=== PATIENT | female | born 1945 | race Caucasian/White ===

== ENCOUNTER 2019-06-27 07:00 | Day surgery (SDC) | payer MEDICARE ==
[~2019-06-27] VITALS: Ht 167.6 cm; Wt 79.0 kg
--- NOTE | 2019-06-27 08:03 | NUR ---
CALL LIGHT IN REACH.
--- NOTE | 2019-06-27 08:55 | NUR ---
RF CYCLES COMPLETED AT 120 DEGREES CELCIUS, 12 SPEARS TOTAL TREATMENT TIME 2:40, 8 RF CYCLES. PT TOLERATED WELL.
--- NOTE | 2019-06-27 09:36 | NUR ---
DISCHARGE INSTRUCTIONS REVIEWED ALL QUESTIONS ANSWERED. 20 G IV DISCONTINUED FROM RIGHT AC WITH INTACT CANNULA. PT ESCORTED OUT VIA WHEELCHAIR ESCORT. PRIOR TO DISCHARGE LEFT LEG WAS WRAPPED TO THIGH-HIGH WITH GAUZE, COBAN AND 20-30 COMPRESSION STOCKING.
[2019-07-17] MEDS ORDERED: ATOR20 PO (13:56)
[2019-07-17] MEDS ORDERED: METO100ER PO (13:57)
[2019-07-17] MEDS ORDERED: CHLO25B PO (13:57)
[2019-07-17] MEDS ORDERED: Prinivil10 MG PO (13:57)
[2019-07-17] MEDS ORDERED: VITAMIN D-32000 UNIT PO (13:58)
[2019-07-17] MEDS ORDERED: [UNRECOGNIZED DRUG - OTHER] PO (13:58)
[2019-07-17] MEDS ORDERED: DAILY VALUE1 EACH PO (13:59)
[2019-07-17] MEDS ORDERED: TURMERIC 450-51 EACH PO (13:59)
[2019-07-17] MEDS ORDERED: Aspir 8181 MG PO (14:00)
[2019-07-18] MEDS ORDERED: LEVSOD100 PO (11:24)
== END 2019-06-27 22:37 | disposition home or self-care (01) ==
LOC: MHTC 07:00
DX: I87.2 Venous insufficiency (chronic) (peripheral) (principal); I83.92 Asymptomatic varicose veins of left lower extremity; I10 Essential (primary) hypertension; E78.5 Hyperlipidemia, unspecified; Z82.49 Family history of ischemic heart disease and other diseases of the circulatory system
CPT/HCPCS: 36475; 99152; C1888; C1894; J1644; J2250; J3010; J7040

== ENCOUNTER 2019-07-18 12:18 | Day surgery (SDC) | payer MEDICARE ==
[~2019-07-18] VITALS: Ht 165.1 cm; Wt 87.0 kg
[~2019-07-18 12:18] MED LIST: ATOR20 PO; Aspir 8181 MG PO; CHLO25B PO; DAILY VALUE1 EACH PO; LEVSOD100 PO; METO100ER PO; Prinivil10 MG PO; TURMERIC 450-51 EACH PO; VITAMIN D-32000 UNIT PO; [UNRECOGNIZED DRUG - OTHER] PO
--- NOTE | 2019-07-18 14:53 | NUR ---
DISCHARGE GONE OVER WITH PT, PT VERBALIZES UNDERSTANDING. TO PRIVATE VEHICLE PER W/C WITH ESCORT.
== END 2019-07-18 22:44 | disposition home or self-care (01) ==
LOC: MHTC 12:18
DX: I83.892 Varicose veins of left lower extremity with other complications (principal); I87.2 Venous insufficiency (chronic) (peripheral)
CPT/HCPCS: 36466; 36470; 99152; J1644; J2250; J3010; J7030; J7040

== ENCOUNTER → 2019-11-22 | Outpatient (CLI) | payer MEDICARE ==
[2019-11-22 14:23] LABS: Creatinine Urine 89.1 mg/dL (27.00-270.00); Protein, Urine Quantitative 8.7 mg/dL (0.0-11.9)
[2019-11-22 14:25] LABS: Microalbumin, Urine Quant. 6.86 mg/L (0.000-20.000)
== END ==
LOC: LAB SRC 08:11 → LAB SHORT 08:11 → LAB FUT 11-19 13:55
PROVIDERS: Internal Medicine Nephrology
DX: N18.3 Chronic kidney disease, stage 3 (moderate) (principal); D63.1 Anemia in chronic kidney disease; R73.09 Other abnormal glucose; N25.81 Secondary hyperparathyroidism of renal origin; E55.9 Vitamin D deficiency, unspecified; E78.00 Pure hypercholesterolemia, unspecified; R76.9 Abnormal immunological finding in serum, unspecified; R94.5 Abnormal results of liver function studies; R94.6 Abnormal results of thyroid function studies; D51.8 Other vitamin B12 deficiency anemias; D52.8 Other folate deficiency anemias; D50.9 Iron deficiency anemia, unspecified
CPT/HCPCS: 81050; 82043; 82570; 84156

== ENCOUNTER 2020-12-05 06:15 | Day surgery (SDC) | payer MEDICARE ==
[~2020-12-05] VITALS: Ht 165.1 cm; Wt 86.0 kg
--- NOTE | 2020-12-05 08:25 | NUR ---
PT TOLERATED TATE PROCEDURE WELL. NADN. PT VERBALIZES UNDERSTANDING WRITTEN AND VERBAL ORDERS. PT IV DC'D. CATH INTACT. PRESSURE DSG IN PLACE. VSS. NADN. PT ESCORTED OUT VIA WC.
[2020-12-31] MEDS ORDERED: THERA-D2000 UNIT PO (10:28)
[2020-12-31] MEDS ORDERED: FURO20 PO (10:29)
[2020-12-31] MEDS ORDERED: [UNRECOGNIZED DRUG - OTHER] PO (10:29)
== END 2020-12-05 11:02 | disposition home or self-care (01) ==
LOC: MHTC 06:15
DX: I05.9 Rheumatic mitral valve disease, unspecified (principal); I10 Essential (primary) hypertension
CPT/HCPCS: 93312; 93325; 99152; A9270; J2250; J3010; J7030

== ENCOUNTER 2021-01-08 07:37 | Day surgery (SDC) | payer MEDICARE ==
[~2021-01-08] VITALS: Ht 167.6 cm; Wt 89.6 kg
[~2021-01-08 07:37] MED LIST changes: +FURO20 PO; +THERA-D2000 UNIT PO; +[UNRECOGNIZED DRUG - OTHER] PO
--- NOTE | 2021-01-08 09:18 | NUR ---
01/08/21 0918 Tonya Fishman 1 MG EPI ADDED TO EACH OF THE FIRST 3 BAGS OF LR FOR IRRIGATION PER ORDER
--- NOTE | 2021-01-08 11:35 | NUR ---
01/08/21 Selina5 АЛЕКСАНДР MCWILLIAMS PATIENT UP TO THE RESTROOM VIA WHEEL CHAIR, CONTINUES TO DENY PAIN, REPORTING MINIMALLY IMPROVED NAUSEA AFTER SCOPOLAMINE PATCH ADMINISTERED
== END 2021-01-08 12:34 | disposition home or self-care (01) ==
LOC: ORSCSDS 07:37
PROVIDERS: Orthopaedic Surgery
PROC: 0LQ24ZZ Repair Left Shoulder Tendon, Percutaneous Endoscopic Approach (ICD-10-PCS; principal; 2021-01-08 09:00)
PROC: 0RNK4ZZ Release Left Shoulder Joint, Percutaneous Endoscopic Approach (ICD-10-PCS; principal; 2021-01-08 09:00)
DX: M75.122 Complete rotator cuff tear or rupture of left shoulder, not specified as traumatic (principal); M75.22 Bicipital tendinitis, left shoulder; M75.42 Impingement syndrome of left shoulder; I10 Essential (primary) hypertension; Z79.899 Other long term (current) drug therapy; E03.9 Hypothyroidism, unspecified; N18.2 Chronic kidney disease, stage 2 (mild)
CPT/HCPCS: A9270; C1713; J0171; J0330; J0690; J2250; J2370; J2405; J2765; J3010; J7120

== ENCOUNTER 2024-04-11 11:23 | Day surgery (SDC) | payer MEDICARE ==
[~2024-04-11] VITALS: Ht 165.1 cm; Wt 88.3 kg
[~2024-04-11 11:23] MED LIST changes: +CARVEDILOL12.5 MG PO; +CARVEDILOL3.125 MG PO; +HYDRA50 PO; +LEVOTHYROXINE112 M18 PO; +Lactated Ringer's 1,000 ML IV ONE; +propofoL 50 ML IV ONE
[2024-04-11] MEDS ORDERED: Lactated Ringer's 1,000 ML IV ONE (12:05)
[2024-04-11] MEDS ORDERED: propofoL 50 ML IV ONE (13:49)
[2024-04-11 14:08] VITALS: BP 141/68
== END 2024-04-11 14:11 | disposition home or self-care (01) ==
LOC: ORSCSDS 11:23
PROVIDERS: Internal Medicine Gastroenterology
PROC: 0DBP8ZX Excision of Rectum, Via Natural or Artificial Opening Endoscopic, Diagnostic (ICD-10-PCS; principal; 2024-04-11 12:45)
DX: Z12.11 Encounter for screening for malignant neoplasm of colon (principal); K62.1 Rectal polyp; K57.30 Diverticulosis of large intestine without perforation or abscess without bleeding; K64.8 Other hemorrhoids; R19.5 Other fecal abnormalities; E78.5 Hyperlipidemia, unspecified; I12.9 Hypertensive chronic kidney disease with stage 1 through stage 4 chronic kidney disease, or unspecified chronic kidney disease; N18.30 Chronic kidney disease, stage 3 unspecified; E05.00 Thyrotoxicosis with diffuse goiter without thyrotoxic crisis or storm; Z68.34 Body mass index [BMI] 34.0-34.9, adult; E03.9 Hypothyroidism, unspecified; Z79.899 Other long term (current) drug therapy
CPT/HCPCS: 88305; J2704; J7120

== ENCOUNTER 2024-12-04 07:00 | Day surgery (SDC) | payer MEDICARE ==
[~2024-12-04] VITALS: Ht 160 cm; Wt 89.2 kg
[2024-12-04] VITALS (11 sets, daily range): BP systolic 124–178; BP diastolic 56–108
[~2024-12-04 07:00] MED LIST changes: +CeFAZolin Sodium 2,000 MG in NS 100 ML IV SCH; +Chlorhexidine Mouth Care 15 ML UDC MT SCH; -Lactated Ringer's 1,000 ML IV ONE; +Lactated Ringer's 1,000 ML IV SCH; +OxyCODONE HCL 10 MG TABCR PO SCH; +Ropivacaine 0.5% HCl/Pf 123.125 MG,EPINEPHrine HCL 0.25 MG,Ketorolac Tromethamine 15 MG... INFIL SCH; +Tranexamic Acid 100 ML IV SCH; -propofoL 50 ML IV ONE
[2024-12-04] MEDS ORDERED: CeFAZolin Sodium 2,000 MG VIAL ONE (07:12)
[2024-12-04] MEDS ORDERED: propofoL 50 ML IV ONE (07:37)
[2024-12-04] MEDS ORDERED: FentaNYL Citrate 50 MCG/ML 2 ML Injection ONE (07:38)
[2024-12-04] MEDS ORDERED: Midazolam HCl 1MG / ML 2ML Vial ONE (07:38)
--- NOTE | 2024-12-04 07:48 | NUR ---
Ambulatory in Day Surgery History, Chart, Medications and Allergies reviewed before start of procedure. Pre-Op teaching done. Pt verbalizes understanding.
[2024-12-04] MEDS ORDERED: Acetaminophen 500 MG Tab ONE (07:59)
[2024-12-04] MEDS ORDERED: Acetaminophen 500 MG Tab PO SCH ×2 (08:05→16:00)
[2024-12-04] MEDS ORDERED: Dexamethasone Sod Phos 10 MG/ML 1ML VIAL ONE (09:11)
[2024-12-04] MEDS ORDERED: Lactated Ringer's 1,000 ML IV SCH (09:40)
[2024-12-04] MEDS ORDERED: HYDROmorphone HCl/Pf 1MG SYR IV PRN ×3 (09:40→10:45)
[2024-12-04] MEDS ORDERED: OxyCODONE HCL 5 MG TAB PO PRN ×2 (09:45)
[2024-12-04] MEDS ORDERED: Magnesium Hydroxide Conc 10 ML UDC PO PRN (09:45)
[2024-12-04] MEDS ORDERED: FLU VACC TS2024-25(6MOS UP)/PF 45 MCG/0.5 ML SYRINGE IM SCH (09:45)
[2024-12-04] MEDS ORDERED: Ondansetron HCl 2 MG / ML 2ML Vial IV PRN ×2 (09:45→10:50)
[2024-12-04] MEDS ORDERED: Metoclopramide HCl 5MG / ML 2ML Vial IV PRN (09:45)
[2024-12-04] MEDS ORDERED: DiphenhydrAMINE HCL 25 MG Cap PO PRN (09:50)
[2024-12-04] MEDS ORDERED: Promethazine HCl 25 MG Tab PO PRN (09:50)
[2024-12-04] MEDS ORDERED: Artificial Tear Opth Oint 3.5 GM ONE (10:03)
[2024-12-04] MEDS ORDERED: ePHEDrine Sulfate 50 MG/ML 1ML Injection ONE (10:03)
[2024-12-04] MEDS ORDERED: Bisacodyl 10 MG Supp PR PRN (10:15)
[2024-12-04] MEDS ORDERED: propofoL 20 ML IV ONE (10:35)
[2024-12-04] MEDS ORDERED: Albuterol 2.5 MG/3 ML VIAL INH PRN (10:45)
[2024-12-04] MEDS ORDERED: FentaNYL Citrate 50 MCG/ML 2 ML Injection IV PRN ×2 (10:45)
[2024-12-04] MEDS ORDERED: Labetalol HCL 5 MG/ML 4ML Injection (Single Dose) IV PRN (10:45)
[2024-12-04] MEDS ORDERED: ePHEDrine Sulfate 50 MG/ML 1ML Injection IV PRN (10:45)
--- NOTE | 2024-12-04 11:26 | NUR ---
PT ARRIVED TO UNIT AT APROX 1126. PT A/O 'X 4. POD 0 L TKA, AQUACEL DRESSING C/D/I, PAS AND POLAR PACK IN PLACE. PT HAS NUMBNESS TO BLE, IS ABLE TO WIGGLE TOES. DENIES PAIN. LUNGS DIM IN BASES UPON ARRIVAL TO UNIT, DENIES SOB/CP. WILL REPORT TO PRIMARY RN FOR ASSUMPTION OF CARE.
[2024-12-04] MEDS ORDERED: Ketorolac Tromethamine 15mg Vial IV SCH (12:00)
--- NOTE | 2024-12-04 14:24 | NUR ---
Pt. is awake in bed reading a book, when she welcomes my visit. Pt. is pleasant. Facilitated a life review and established some rapport after the Pt. 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 Consdiered matters of sebastián and belief. Pt. verbalized expectations to possibly discharge home today. Seek to normalize the Pt. experience and expectations. Prayed for the Pt. Pt. verbalized gratitude for the spiritual care visit.
--- NOTE | 2024-12-04 16:54 | NUR ---
Spiritual Care Follow up. After the pt. had finished with PT and it was determined she would be staying the night to recover. This butcher and the PT prayed with the Pt. Pt. verbalzied gratitude for the spiritual care visit.
[2024-12-04] MEDS ORDERED: CeFAZolin Sodium 2,000 MG in NS 100 ML IV SCH (17:00)
[2024-12-04] MEDS ORDERED: Carvedilol 25 MG Tab PO SCH (17:00)
--- NOTE | 2024-12-04 19:30 | NUR ---
SHIFT SUMMARY POD0 L TKA, A/OX4, VSS, TOLERATING PO, PAIN WELL MANAGED, UP TO THE CHAIR AFTER WORKING WITH THERAPY, VOIDING. AQUACELL DRESSING C/D/I. NO ACUTE EVENTS THIS SHIFT, CALL LIGHT IN [facility].
[2024-12-04] MEDS ORDERED: Docusate Sodium 100 MG Cap PO SCH (21:00)
[2024-12-04] MEDS ORDERED: Atorvastatin 10 MG Tab PO SCH (21:00)
[2024-12-04] MEDS ORDERED: Lisinopril 20 MG Tab PO SCH (21:00)
[2024-12-04] MEDS ORDERED: HydrALAZINE HCl 50 MG Tab PO SCH (21:00)
[2024-12-05 00:12] VITALS: BP 133/57
[2024-12-05 04:33] VITALS: BP 149/63
--- NOTE | 2024-12-05 05:59 | NUR ---
SHIFT SUMMARY POD 1 L TKA. NO ACUTE CHANGES OVERNIGHT. VSS. TOLERATING ORALS. VOIDING. AQUACEL & RABIA WRAP, C/D/I. PT REPORTS PAIN TOLERABLE, MEDICATED PER EMAR, POLAR PACK IN USE. ANTICIPATED TO WORK c PHYSCIAL THERAPY THEN DISCHARGE HOME LATER TODAY. PT DRESSED, RESTING IN CHAIR. CALL LIGHT IN REACH, WILL REPORT TO DAY RN.
[2024-12-05] MEDS ORDERED: Levothyroxine Sodium 0.125 MG Tab PO SCH (06:00)
[2024-12-05 06:56] LABS: BASOPHILS ABSOLUTE AUTO 0.01 K/mm3 (0.00-0.23); BASOPHILS PERCENT AUTO 0 % (0-2); EOSINOPHILS PERCENT AUTO 0 % (0-6); Hematocrit 27.7 % (33.0-51.0); Hemoglobin 9.5 g/dL (11.5-16.0); IMMATURE GRAN ABSOLUTE AUTO 0.09 K/mm3 (0.00-0.10); IMMATURE GRAN PERCENT AUTO 1 % (0-1); LYMPHOCYTES ABSOLUTE AUTO 1.31 K/mm3 (0.84-5.20); LYMPHOCYTES PERCENT AUTO 8 % (21-46); MONOCYTES PERCENT AUTO 5 % (4-13); Mean Corpuscular HGB 31.9 pg (26.0-34.0); Mean Corpuscular HGB Conc 34.3 g/dL (31.5-36.5); Mean Corpuscular Volume 93 fL (80-100); Mean Platelet Volume 9.3 fL (9.1-12.4); NEUTROPHILS ABSOLUTE AUTO 14.02 K/mm3 (1.96-9.15); NEUTROPHILS PERCENT AUTO 86 % (41-73); Platelet Count 261 K/mm3 (150-400); RDW Coefficient Variation 13.1 % (11.7-14.2); RDW Standard Deviation 44.1 fL (35.1-46.3); Red Blood Cell Count 2.98 M/mm3 (3.80-5.20); White Blood Cell Count 16.23 K/mm3 (4.00-11.30)
[2024-12-05 07:03] LABS: Bun/Creatinine Ratio 16.8 (12.0-20.0); Calcium, Blood 8.7 mg/dL (8.5-10.1); Creatinine, Blood 1.37 mg/dL (0.40-1.00); Potassium, Blood 4.1 mmol/L (3.5-5.5)
[2024-12-05 07:19] VITALS: BP 163/62
[2024-12-05] MEDS ORDERED: Aspirin 81 MG Chew PO SCH (09:00)
[2024-12-05] MEDS ORDERED: Atorvastatin 10 MG Tab PO SCH (09:00)
[2024-12-05] MEDS ORDERED: Furosemide 20 MG Tab PO SCH (09:00)
[2024-12-05] MEDS ORDERED: ASPI81CH PO (10:29)
--- NOTE | 2024-12-05 10:31 | NUR ---
Pt. is dressen and awaiting discharge process. Pt. is pleasant and I normailize the Pt. discharge experience. Facilitate more life updates. Pt. displays evidence of confidence and anticipation. Prayed with Pt. Pt. verbalized gratitude for the spiritual care visit.
--- NOTE | 2024-12-05 11:22 | NUR ---
DISCHARGE: PT IS DOING WELL POST OP. SURGICAL SITE WNL, DENIES N/T. PEDAL PULSE +2. LUNGS ARE CLEAR. VSS, A/O. PT WORKED WITH THERAPY AND CLEARED TO DC. DC PACKET PRINTED AND PT EDUCATED. IV DC'D WNL, TIP INTACT. PT LEFT UNIT VIA WHEELCHAIR WITH FAMILY AND STUDENT RN AT 1120
== END 2024-12-05 11:08 | disposition home or self-care (01) ==
LOC: SURS 07:00 → ORSCMMR 07:00 → SURS 11:17 → ORD 12:30 → ORSCMMR 12:30 → ORD 14:00 → SURS 12-05 11:08 → ORSCMMR 12-05 11:08 → ORD 10-03 12:30
PROVIDERS: Orthopaedic Surgery
PROC: 0SRD0JA Replacement of Left Knee Joint with Synthetic Substitute, Uncemented, Open Approach (ICD-10-PCS; principal; 2024-12-04 08:15)
DX: M17.12 Unilateral primary osteoarthritis, left knee (principal); I12.9 Hypertensive chronic kidney disease with stage 1 through stage 4 chronic kidney disease, or unspecified chronic kidney disease; N18.9 Chronic kidney disease, unspecified; E03.9 Hypothyroidism, unspecified; E78.5 Hyperlipidemia, unspecified; I50.9 Heart failure, unspecified; Z79.899 Other long term (current) drug therapy
CPT/HCPCS: 36415; 73560-LT; 80048; 85025; 97110; 97116; 97162; A9270; C1713; C1776; J0171; J0690; J0735; J1100; J1885; J2250; J2704; J2795; J3010; J7120